=== PATIENT | female | born 1970 | race Caucasian/White ===

== ENCOUNTER 2016-08-25 16:12 | Emergency (ER) | payer BC ==
--- NOTE | 2016-08-25 18:04 | ERNOTE ---
Upper Extremity HPI - Narrative Date of Service: 08/25/16 - General Extremities Pain Location: 4th finger: right Time Seen by Provider: 08/25/16 17:31 Source: patient, RN notes reviewed Exam Limitations: no limitations - Immun/Allergies/Home Medications Immunizations: IMMUNIZATION HX Immunizations Up to Date Yes History of Influenza Vaccine Yes Hx Pneumococcal Vaccination No Allergies/Adverse Reactions: Allergies Allergy/AdvReac Type Severity Reaction Status Date / Time insulin glargine, human Allergy Severe swelling Verified 08/17/12 14:10 recombin. a tingling [From Lantus] arms Home Medications: HOME MEDICATIONS Atenolol [Tenormin] 10 mg PO DAILY 08/17/12 [Last Taken Unknown] Insulin Detemir [Levemir] 50 unit SQ DAILY 08/17/12 [Last Taken Unknown] Insulin Lispro [Humalog] 10 unit SQ TID 08/17/12 [Last Taken Unknown] Simvastatin [Simvastatin (Zocor)] 80 mg PO HS 08/17/12 [Last Taken Unknown] Valsartan [Diovan] 160 mg PO DAILY 08/17/12 [Last Taken Unknown] metFORMIN HCL [Metformin HCl ER] 1,000 mg PO BID 08/17/12 [Last Taken Unknown] Albuterol Sulfate [Proair Hfa] 2 puff IH Q4H PRN 03/04/13 [Last Taken Unknown] Loratadine [Loratadine (Claritin)] 10 mg PO DAILY 03/04/13 [Last Taken Unknown] Multivitamins [Multivitamin Marly] 1 cap PO DAILY 03/04/13 [Last Taken Unknown] - History of Present Illness Narrative: 45 y/o female ambulatory to the ED for pain and bruising to her right distal ring finger. She was breaking up a fight between her dog and her son's dog when her finger got caught in one of the dogs' collars. She has not taken anything for pain. She denies any other injuries. Occurred: just prior to arrival Location of Incident: home Severity: mild Method of Injury: Reports: twisted Other Injuries: Reports: none Prior Treament: Denies: recently seen Review of Systems - Review of Systems Constitutional: Absent: recent illness, fever, chills EYE: Present: no symptoms reported ENT: Present: no symptoms reported Respiratory: Present: no symptoms reported Cardiology: Present: no symptoms reported Gastrointestinal/Abdominal: Present: no symptoms reported Genitourinary: Present: no symptoms reported Musculoskeletal: Present: joint pain. Absent: joint swelling Skin: Absent: lesions, lumps Neurological: Absent: weakness, numbness, tingling Endocrine: Present: no symptoms reported Hematologic/Lymphatic: Absent: easy bruising, easy bleeding Psych: Present: no symptoms reported - Patient's Past Medical History Patient History - Medical: Diabetes Type 2, Diabetes Type 2 Insulin Dependent Patient History - Cardiac/Respiratory: Asthma, Hypertension, Hyperlipidemia Patient History - Cancer: No Hx of Cancer Patient History - Surgical Procedures: Tubal Ligation, T & A, Other Patient History - Other: None - Social History Living Situations: home Abuse History: No History of abuse Psych History: No pertinent hx Smoking Status: Never smoker Have you smoked in the past 12 months: No Alcohol Use: rarely Drug Use: none - Immunizations Immunizations Up to Date: Yes Hx Pneumococcal Vaccination: No History of Influenza Vaccine: Yes Physical Exam - Physical Exam General Appearance: Present: wd/wn, alert, no apparent distress Respiratory: Present: no respiratory distress, no accessory muscle use Cardiovascular/Chest: Present: normal peripheral pulses Extremity Exam: Present: decreased range of motion - Right 4th DIP joint, no deformity, mildly tender to palpation, mild ecchymosis present - skin intact, no nail injury Neurological Exam: Present: alert, oriented, normal mood/affect, no motor/ sensory deficits Skin Exam: Present: normal color, warm/dry ED Progress - Vital Signs Patient's Vital Signs:: I have reviewed the patient's vital signs. Vital Signs: Vital Signs 08/25/16 16:16 Temperature 37.1 C Pulse Rate 88 Respiratory 14 Rate Blood Pressure 166/91 O2 Sat by Pulse 98 Oximetry - X-Ray X-Ray #1 X-Ray: finger Interpretation: Interp. by mi X-ray Comments: Right 4th finger - no acute osseous abnormality noted - Progress/Reassessment Chief Complaint: Upper Extremity Injury/Problem Progress:: Unchanged Departure Clinical Impression: Contusion of finger without damage to nail Qualifiers: Encounter type: initial encounter Finger: ring finger Laterality: right Qualified Code(s): S60.041A - Contusion of right ring finger without damage to nail, initial encounter - Departure Disposition: Home self-care Condition: Good Instructions: Contusion, [id number] Referrals: Sammi Perez MD [Primary Care Provider] -
[2016-08-25 18:12] VITALS: BP 135/84
== END 2016-08-25 18:05 | disposition home or self-care (01) ==
LOC: ER 16:12
DX: S60.041A Contusion of right ring finger without damage to nail, initial encounter (principal); X58.XXXA Exposure to other specified factors, initial encounter; Y93.89 Activity, other specified; Y92.009 Unspecified place in unspecified non-institutional (private) residence as the place of occurrence of the external cause